=== PATIENT | female | born 1960 | race Caucasian/White ===

== ENCOUNTER 2023-02-24 09:11 | Day surgery (SDC) | payer MEDICAID, SELFPAY ==
[~2023-02-24] VITALS: Ht 162.6 cm; Wt 63.5 kg
[~2023-02-24 09:11] MED LIST: ASPI325T57 PO; FLUC200T4; FOLI400T5 PO; IRON15CH PO; MUCI600T31 PO; VITA200028 PO; VITA500C24 PO; VITMTA PO
[2023-02-24] MEDS ORDERED: LR 1,000 ML IV SCH ×2 (09:55→12:20)
[2023-02-24] MEDS ORDERED: fentaNYL 100 MCG/2 ML INJECTION As Ordered ONE (10:54)
[2023-02-24] MEDS ORDERED: propofoL 200 MG/20 ML VIAL As Ordered ONE (10:54)
[2023-02-24] MEDS ORDERED: LIDOCAINE 2% 100MG/5ML SDV (FOR ANES.) As Ordered ONE (10:54)
[2023-02-24] MEDS ORDERED: ROCURONIUM BROMIDE 50MG/5ML VIAL As Ordered ONE (10:54)
[2023-02-24] MEDS ORDERED: MIDAZOLAM INJ 2MG/2ML VIAL As Ordered ONE (10:54)
[2023-02-24] MEDS ORDERED: ACETAMINOPHEN 1000MG 100ML IV BAG As Ordered ONE (10:55)
[2023-02-24] MEDS ORDERED: ONDANSETRON 4MG 2ML VIAL As Ordered ONE (10:55)
[2023-02-24] MEDS ORDERED: dexmedeTOMIDine (4MCG/ML)200MCG/50ML BTL (PRECEDEX) As Ordered ONE (11:44)
[2023-02-24] MEDS: LIDOCAINE W/EPINEPHRINE 1% 20ML VIAL As Ordered ONE (11:54)
[2023-02-24] MEDS ORDERED: SUGAMMADEX SODIUM 500 MG/5 ML VIAL (BRIDION) As Ordered ONE (12:02)
[2023-02-24] MEDS ORDERED: HYDROMORPHONE HCL 0.5 MG/ 0.5 ML SYRINGE IV PRN (12:20)
[2023-02-24] MEDS ORDERED: fentaNYL 100 MCG/2 ML INJECTION IV PRN (12:20)
[2023-02-24] MEDS ORDERED: oxyCODONE 5MG TAB PO PRN (12:20)
[2023-02-24] MEDS ORDERED: ONDANSETRON 4MG 2ML VIAL IV PRN (12:20)
[2023-02-24 13:35] VITALS: BP 164/94; TEMP 98.4; O2SAT 94
[2023-03-28] MEDS ORDERED: PERCOCET PO (11:23)
[2023-03-28] MEDS ORDERED: DEXA4TA PO (17:23)
[2023-04-05] MEDS ORDERED: OXYC10TA3 PO (08:34)
[2023-04-18] MEDS ORDERED: ONDA8TAB8 PO (15:17)
[2023-04-18] MEDS ORDERED: PROC10TA5 PO (15:17)
== END 2023-02-24 13:37 | disposition home or self-care (01) ==
LOC: M SDC 09:11
PROVIDERS: ATTEND Otolaryngology
DX: C01 Malignant neoplasm of base of tongue (principal); C77.0 Secondary and unspecified malignant neoplasm of lymph nodes of head, face and neck; K21.9 Gastro-esophageal reflux disease without esophagitis; K76.9 Liver disease, unspecified; Z79.82 Long term (current) use of aspirin; Z79.899 Other long term (current) drug therapy; F17.218 Nicotine dependence, cigarettes, with other nicotine-induced disorders
CPT/HCPCS: 31536; 88305; J1100; J2250; J2405; J3010

== ENCOUNTER → 2023-03-28 | Outpatient (CLI) | payer SELFPAY ==
[~2023-03-28] MED LIST changes: +DEXA4TA PO; +PERCOCET PO
== END ==
LOC: M ONCR 10:00
PROVIDERS: ATTEND General Practice
DX: C01 Malignant neoplasm of base of tongue (principal); G89.3 Neoplasm related pain (acute) (chronic); F17.210 Nicotine dependence, cigarettes, uncomplicated; Z71.2 Person consulting for explanation of examination or test findings; Z79.82 Long term (current) use of aspirin
CPT/HCPCS: 31575; G0463

== ENCOUNTER → 2023-03-28 | Outpatient (CLI) | payer SELFPAY | LOC: M PLARAD 12:59 | PROVIDERS: ATTEND Otolaryngology | DX: R22.1 Localized swelling, mass and lump, neck (principal) | CPT/HCPCS: 78815; A9552 ==

== ENCOUNTER → 2023-04-04 | Outpatient (CLI) | payer SELFPAY ==
[~2023-04-04] MED LIST changes: +OXYC10TA3 PO
== END ==
LOC: M IRPRO 12:53
PROVIDERS: ATTEND Internal Medicine Medical Oncology
DX: C01 Malignant neoplasm of base of tongue (principal)

== ENCOUNTER → 2023-04-22 | Outpatient (CLI) | payer MEDICAID ==
[~2023-04-22] VITALS: Ht 162.6 cm; Wt 54.4 kg
[~2023-04-22] MED LIST changes: +LIDOCAINE 1% MDV 20ML VIAL As Ordered ONE; +LIDOCAINE W/EPINEPHRINE 1% 20ML VIAL As Ordered ONE; +MIDAZOLAM INJ 2MG/2ML VIAL As Ordered ONE; +ONDA8TAB8 PO; +PROC10TA5 PO; +ceFAZolin 2 GM/D5W 50 ML IV BAG As Ordered ONE; +fentaNYL 100 MCG/2 ML INJECTION As Ordered ONE
[2023-04-22 09:15] VITALS: TEMP 98.3
[2023-04-22 09:56] LABS: INR 1.16; PROTHROMBIN TIME 14.5 SECONDS (12.5-14.5)
[2023-04-22] MEDS: ceFAZolin SOD 2 GM in IV 1 EA IV ONE (11:12)
[2023-04-22 12:40] VITALS: BP 105/66; O2SAT 96
== END ==
LOC: M IRPRO 08:58
PROVIDERS: ATTEND Internal Medicine Medical Oncology
DX: C01 Malignant neoplasm of base of tongue (principal)
CPT/HCPCS: 36561; 85610; 99152; 99153; J0690; J2250; J3010

== ENCOUNTER → 2023-05-04 | Outpatient (REF) | payer MEDICAID ==
[~2023-05-04] MED LIST changes: +AUGM500T34 PO; -LIDOCAINE 1% MDV 20ML VIAL As Ordered ONE; -LIDOCAINE W/EPINEPHRINE 1% 20ML VIAL As Ordered ONE; -MIDAZOLAM INJ 2MG/2ML VIAL As Ordered ONE; -ceFAZolin 2 GM/D5W 50 ML IV BAG As Ordered ONE; -fentaNYL 100 MCG/2 ML INJECTION As Ordered ONE
== END ==
LOC: M LAB REF 17:05
PROVIDERS: ATTEND Otolaryngology
DX: C76.0 Malignant neoplasm of head, face and neck (principal)

== ENCOUNTER → 2023-05-31 | Outpatient (CLI) | payer OTHER, MEDICAID ==
[~2023-05-31] MED LIST changes: +MAGN400C PO; +POTA99CA2 PO
== END ==
LOC: M ONCR 09:55
PROVIDERS: ATTEND General Practice
DX: C01 Malignant neoplasm of base of tongue (principal); R20.0 Anesthesia of skin; Z79.899 Other long term (current) drug therapy; Z87.891 Personal history of nicotine dependence; Z92.21 Personal history of antineoplastic chemotherapy
CPT/HCPCS: 31575; G0463

== ENCOUNTER → 2023-07-05 | Outpatient (RCR) | payer OTHER ==
[~2023-07-05] MED LIST changes: +B-122500 PO; +FLUC100T3 PO; +GABA-1171 PO; +MAGN400T2 PO; +MIRT1TAB PO; +TRIA25CR TOP
== END ==
LOC: M ONCR 06-08 13:33
PROVIDERS: ATTEND General Practice
DX: Z51.0 Encounter for antineoplastic radiation therapy (principal); C01 Malignant neoplasm of base of tongue

== ENCOUNTER → 2023-07-07 | Outpatient (CLI) | payer OTHER ==
[~2023-07-07] VITALS: Ht 162.6 cm; Wt 52.5 kg
[~2023-07-07] MED LIST changes: -TRIA25CR TOP
[2023-07-07 13:13] VITALS: BP 100/60; O2SAT 100
== END ==
LOC: M PAL 12:51
PROVIDERS: ATTEND Nurse Practitioner Adult Health
DX: G62.9 Polyneuropathy, unspecified (principal); C01 Malignant neoplasm of base of tongue; R06.09 Other forms of dyspnea; B37.0 Candidal stomatitis; R53.83 Other fatigue; R63.0 Anorexia; R53.1 Weakness; Z51.5 Encounter for palliative care; Z92.21 Personal history of antineoplastic chemotherapy; Z92.3 Personal history of irradiation; F17.210 Nicotine dependence, cigarettes, uncomplicated; Z79.51 Long term (current) use of inhaled steroids; Z79.891 Long term (current) use of opiate analgesic; Z79.899 Other long term (current) drug therapy

== ENCOUNTER → 2023-08-05 | Outpatient (RCR) | payer OTHER ==
[~2023-08-05] MED LIST changes: +DEXA2TA PO; +LEVO1TAB39 PO; +MAGICMW SSP; +NYST-38 PO; +TRIA25CR TOP
== END ==
LOC: M ONCR 07-06 13:53
PROVIDERS: ATTEND General Practice
DX: Z51.0 Encounter for antineoplastic radiation therapy (principal); C01 Malignant neoplasm of base of tongue

== ENCOUNTER → 2023-08-10 | Outpatient (CLI) | payer OTHER ==
[~2023-08-10] VITALS: Ht 162.6 cm; Wt 48.1 kg
[~2023-08-10] MED LIST changes: +FENT12DI8 TOP; +ONDA-284 PO; -ONDA8TAB8 PO
[2023-08-10 11:14] VITALS: BP 117/70; O2SAT 95
== END ==
LOC: M PAL 10:40
PROVIDERS: ATTEND Nurse Practitioner Adult Health
DX: G62.9 Polyneuropathy, unspecified (principal); C01 Malignant neoplasm of base of tongue; R06.09 Other forms of dyspnea; K12.30 Oral mucositis (ulcerative), unspecified; R53.83 Other fatigue; R63.0 Anorexia; R53.1 Weakness; Z51.5 Encounter for palliative care; Z66 Do not resuscitate; Z92.21 Personal history of antineoplastic chemotherapy; Z92.3 Personal history of irradiation; F17.210 Nicotine dependence, cigarettes, uncomplicated; Z79.52 Long term (current) use of systemic steroids; Z79.891 Long term (current) use of opiate analgesic; Z79.899 Other long term (current) drug therapy

== ENCOUNTER 2023-08-11 14:29 | Outpatient (RCR) | payer OTHER ==
[2023-08-18] MEDS ORDERED: MAGN400T35 (13:55)
[2023-08-18] MEDS ORDERED: FOLI1TAB11 PO (13:55)
== END 2023-09-04 ==
LOC: M ONCR 14:29
PROVIDERS: ATTEND General Practice
DX: Z51.0 Encounter for antineoplastic radiation therapy (principal); C01 Malignant neoplasm of base of tongue

== ENCOUNTER → 2023-08-18 | Outpatient (CLI) | payer OTHER ==
[~2023-08-18] MED LIST changes: +FOLI1TAB11 PO; +MAGN400T35
== END ==
LOC: M ONCR 13:38
PROVIDERS: ATTEND General Practice
DX: C01 Malignant neoplasm of base of tongue (principal); L59.8 Other specified disorders of the skin and subcutaneous tissue related to radiation; Z71.2 Person consulting for explanation of examination or test findings; Z79.899 Other long term (current) drug therapy; W88.8XXA Exposure to other ionizing radiation, initial encounter; Z92.3 Personal history of irradiation

== ENCOUNTER → 2023-09-22 | Outpatient (CLI) | payer OTHER ==
[~2023-09-22] VITALS: Ht 162.6 cm; Wt 47.7 kg
[~2023-09-22] MED LIST changes: +ECHI500C PO; +GABA-282 PO; +GALZ50CA PO; +IRON65TA2 PO; +L-LY500T6 PO; +LIDO15SO8 PO; +NEUR100C PO; +NOXI1TAB PO; +NYST-38 SS
[2023-09-22 13:03] VITALS: BP 128/83; O2SAT 100
== END ==
LOC: M PAL 12:47
PROVIDERS: ATTEND Nurse Practitioner Adult Health
DX: C01 Malignant neoplasm of base of tongue (principal); B37.0 Candidal stomatitis; K12.30 Oral mucositis (ulcerative), unspecified; R53.83 Other fatigue; R63.0 Anorexia; R53.1 Weakness; Z51.5 Encounter for palliative care; Z66 Do not resuscitate; Z92.21 Personal history of antineoplastic chemotherapy; Z92.3 Personal history of irradiation; F17.210 Nicotine dependence, cigarettes, uncomplicated; Z79.891 Long term (current) use of opiate analgesic; Z79.899 Other long term (current) drug therapy

== ENCOUNTER → 2023-09-22 | Outpatient (CLI) | payer OTHER | LOC: M ONCR 15:31 | PROVIDERS: ATTEND General Practice | DX: Z01.89 Encounter for other specified special examinations (principal); R63.0 Anorexia; R07.0 Pain in throat; L59.8 Other specified disorders of the skin and subcutaneous tissue related to radiation ==

== ENCOUNTER → 2023-10-25 | Outpatient (CLI) | payer OTHER | LOC: M PLARAD 13:16 | PROVIDERS: ATTEND General Practice | DX: C01 Malignant neoplasm of base of tongue (principal) | CPT/HCPCS: 78815; A9552 ==

== ENCOUNTER → 2023-10-27 | Outpatient (CLI) | payer OTHER ==
[~2023-10-27] MED LIST changes: +GABA-1172 PO; -GABA-282 PO
== END ==
LOC: M ONCM 15:00 → M PAL 15:00
PROVIDERS: ATTEND Nurse Practitioner Adult Health
DX: C01 Malignant neoplasm of base of tongue (principal); G62.9 Polyneuropathy, unspecified; R63.0 Anorexia; K12.30 Oral mucositis (ulcerative), unspecified; R59.0 Localized enlarged lymph nodes; B37.0 Candidal stomatitis; Z51.5 Encounter for palliative care; Z66 Do not resuscitate; Z79.891 Long term (current) use of opiate analgesic; Z79.899 Other long term (current) drug therapy; Z92.21 Personal history of antineoplastic chemotherapy; Z92.3 Personal history of irradiation

== ENCOUNTER → 2023-10-27 | Outpatient (CLI) | payer OTHER ==
[~2023-10-27] VITALS: Ht 162.6 cm; Wt 49.9 kg
[2023-10-27 14:54] VITALS: BP 124/68; O2SAT 98
== END ==
LOC: M ONCR 13:51
PROVIDERS: ATTEND General Practice
DX: C01 Malignant neoplasm of base of tongue (principal); C77.0 Secondary and unspecified malignant neoplasm of lymph nodes of head, face and neck; F17.210 Nicotine dependence, cigarettes, uncomplicated; Z79.891 Long term (current) use of opiate analgesic; Z79.899 Other long term (current) drug therapy; Z92.21 Personal history of antineoplastic chemotherapy; Z92.3 Personal history of irradiation
CPT/HCPCS: 31575; 99213; G0463

== ENCOUNTER → 2023-11-28 | Outpatient (CLI) | payer OTHER ==
[~2023-11-28] VITALS: Ht 162.6 cm; Wt 48.3 kg
[2023-11-28 14:17] VITALS: BP 137/80; O2SAT 97
== END ==
LOC: M PAL 13:35
PROVIDERS: ATTEND Nurse Practitioner Adult Health
DX: C01 Malignant neoplasm of base of tongue (principal); B37.0 Candidal stomatitis; K12.30 Oral mucositis (ulcerative), unspecified; G62.9 Polyneuropathy, unspecified; R59.0 Localized enlarged lymph nodes; R53.83 Other fatigue; R63.0 Anorexia; R53.1 Weakness; Z51.5 Encounter for palliative care; Z66 Do not resuscitate; Z92.21 Personal history of antineoplastic chemotherapy; Z92.3 Personal history of irradiation; F17.210 Nicotine dependence, cigarettes, uncomplicated; Z79.891 Long term (current) use of opiate analgesic; Z79.899 Other long term (current) drug therapy

== ENCOUNTER → 2024-01-12 | Outpatient (CLI) | payer OTHER ==
[~2024-01-12] VITALS: Ht 162.6 cm; Wt 48.1 kg
[~2024-01-12] MED LIST changes: +FLUC-1; -FLUC200T4
[2024-01-12 14:03] VITALS: BP 142/81; O2SAT 99
== END ==
LOC: M PAL 13:31
PROVIDERS: ATTEND Nurse Practitioner Adult Health
DX: C01 Malignant neoplasm of base of tongue (principal); B37.0 Candidal stomatitis; K12.30 Oral mucositis (ulcerative), unspecified; G62.9 Polyneuropathy, unspecified; R53.83 Other fatigue; R63.0 Anorexia; R53.1 Weakness; Z51.5 Encounter for palliative care; Z66 Do not resuscitate; Z92.21 Personal history of antineoplastic chemotherapy; Z92.3 Personal history of irradiation; F17.210 Nicotine dependence, cigarettes, uncomplicated; Z79.891 Long term (current) use of opiate analgesic; Z79.899 Other long term (current) drug therapy; Z98.890 Other specified postprocedural states

== ENCOUNTER → 2024-01-27 | Outpatient (CLI) | payer OTHER ==
[2024-01-27 15:17] LABS: FREE T4 1.07 NG/DL (0.89-1.76)
[2024-01-27 15:18] LABS: THYROID STIMULATING HORMONE 2.304 uIU/ML (0.55-4.78)
== END ==
LOC: M ONCR 14:05
PROVIDERS: ATTEND General Practice
DX: C01 Malignant neoplasm of base of tongue (principal); I89.0 Lymphedema, not elsewhere classified; F17.210 Nicotine dependence, cigarettes, uncomplicated; Z92.21 Personal history of antineoplastic chemotherapy; Z92.3 Personal history of irradiation; Z98.890 Other specified postprocedural states
CPT/HCPCS: 31575; 36415; 84439; 84443; 84481; G0463

== ENCOUNTER 2024-02-24 09:42 | Outpatient (RCR) | payer OTHER ==
[2024-03-08] MEDS ORDERED: OXYC10TA3 PO (13:33)
== END 2024-03-06 ==
LOC: M PT 09:42
PROVIDERS: ATTEND General Practice
DX: I89.0 Lymphedema, not elsewhere classified (principal)

== ENCOUNTER → 2024-03-15 | Outpatient (CLI) | payer OTHER ==
[~2024-03-15] VITALS: Ht 162.6 cm; Wt 46.1 kg
[~2024-03-15] MED LIST changes: +MIRA3350 PO
[2024-03-15 14:45] VITALS: BP 148/68; O2SAT 97
== END ==
LOC: M PAL 14:19
PROVIDERS: ATTEND Family Medicine
DX: Z51.5 Encounter for palliative care (principal); R52 Pain, unspecified; C76.0 Malignant neoplasm of head, face and neck; Z92.21 Personal history of antineoplastic chemotherapy; Z92.3 Personal history of irradiation; Z98.890 Other specified postprocedural states; Z66 Do not resuscitate; Z79.891 Long term (current) use of opiate analgesic; Z79.899 Other long term (current) drug therapy

== ENCOUNTER 2024-03-30 09:20 | Outpatient (RCR) | payer OTHER | END 2024-04-06 | LOC: M PT 09:20 | PROVIDERS: ATTEND General Practice | DX: I89.0 Lymphedema, not elsewhere classified (principal); C01 Malignant neoplasm of base of tongue ==

== ENCOUNTER → 2024-04-24 | Outpatient (CLI) | payer OTHER ==
[~2024-04-24] MED LIST changes: +ISOVUE-370 76% 100ML VIAL As Ordered ONE
== END ==
LOC: M RAD 10:12
PROVIDERS: ATTEND General Practice
DX: C01 Malignant neoplasm of base of tongue (principal); K13.79 Other lesions of oral mucosa; R91.1 Solitary pulmonary nodule
CPT/HCPCS: 70491; 71260; Q9967

== ENCOUNTER → 2024-05-01 | Outpatient (CLI) | payer OTHER ==
[~2024-05-01] MED LIST changes: -ISOVUE-370 76% 100ML VIAL As Ordered ONE
== END ==
LOC: M ONCR 13:58
PROVIDERS: ATTEND General Practice
DX: C01 Malignant neoplasm of base of tongue (principal); K08.9 Disorder of teeth and supporting structures, unspecified; R59.0 Localized enlarged lymph nodes; Z92.21 Personal history of antineoplastic chemotherapy; Z92.3 Personal history of irradiation; F17.210 Nicotine dependence, cigarettes, uncomplicated; Z79.891 Long term (current) use of opiate analgesic; Z79.899 Other long term (current) drug therapy

== ENCOUNTER → 2024-05-21 | Outpatient (CLI) | payer OTHER | LOC: M PLARAD 14:54 | PROVIDERS: ATTEND General Practice | DX: C01 Malignant neoplasm of base of tongue (principal) | CPT/HCPCS: 78815; A9552 ==

== ENCOUNTER → 2024-05-29 | Outpatient (CLI) | payer OTHER ==
[~2024-05-29] MED LIST changes: +MIRT1TAB15 PO
== END ==
LOC: M ONCR 11:10
PROVIDERS: ATTEND General Practice
DX: C77.0 Secondary and unspecified malignant neoplasm of lymph nodes of head, face and neck (principal); C01 Malignant neoplasm of base of tongue; F17.210 Nicotine dependence, cigarettes, uncomplicated; Z79.899 Other long term (current) drug therapy; Z92.21 Personal history of antineoplastic chemotherapy; Z92.3 Personal history of irradiation; K08.89 Other specified disorders of teeth and supporting structures; R91.8 Other nonspecific abnormal finding of lung field

== ENCOUNTER → 2024-05-29 | Outpatient (CLI) | payer OTHER ==
[~2024-05-29] VITALS: Ht 162.6 cm; Wt 49.7 kg
[2024-05-29 11:37] VITALS: BP 111/69; O2SAT 97
== END ==
LOC: M PAL 11:12
PROVIDERS: ATTEND Physician Assistant
DX: Z51.5 Encounter for palliative care (principal); Z66 Do not resuscitate; C44.42 Squamous cell carcinoma of skin of scalp and neck; Z92.3 Personal history of irradiation; Z92.21 Personal history of antineoplastic chemotherapy; Z79.891 Long term (current) use of opiate analgesic; F41.9 Anxiety disorder, unspecified; Z79.899 Other long term (current) drug therapy

== ENCOUNTER → 2024-06-25 | Outpatient (CLI) | payer OTHER ==
[~2024-06-25] VITALS: Ht 167.6 cm; Wt 46.3 kg
[~2024-06-25] MED LIST changes: +LIDO30CR18 TOP; +ONDA-84 PO; +OXYC1SOL3 PO
[2024-06-25 11:12] VITALS: BP 116/83; O2SAT 96
== END ==
LOC: M PAL 10:51
PROVIDERS: ATTEND Physician Assistant
DX: Z51.5 Encounter for palliative care (principal); C01 Malignant neoplasm of base of tongue; F41.9 Anxiety disorder, unspecified; R52 Pain, unspecified; Z66 Do not resuscitate; Z92.21 Personal history of antineoplastic chemotherapy; Z92.3 Personal history of irradiation; Z98.890 Other specified postprocedural states; Z79.891 Long term (current) use of opiate analgesic; Z79.899 Other long term (current) drug therapy

== ENCOUNTER → 2024-06-25 | Outpatient (CLI) | payer OTHER | LOC: M ONCR 10:52 | PROVIDERS: ATTEND General Practice | DX: C01 Malignant neoplasm of base of tongue (principal); K12.31 Oral mucositis (ulcerative) due to antineoplastic therapy; B37.0 Candidal stomatitis; T45.1X5A Adverse effect of antineoplastic and immunosuppressive drugs, initial encounter; Z92.21 Personal history of antineoplastic chemotherapy ==

== ENCOUNTER → 2024-07-11 | Outpatient (CLI) | payer OTHER ==
[~2024-07-11] VITALS: Ht 162.6 cm; Wt 46.7 kg
[~2024-07-11] MED LIST changes: -GALZ50CA PO; +OXYC10TA12 PO; +SENN8.6T58 PO; -TRIA25CR TOP; +TRIA80CR15 TOP; +ZINC50CA4 PO
[2024-07-11 11:07] VITALS: BP 99/63; O2SAT 97
== END ==
LOC: M PAL 10:43
PROVIDERS: ATTEND Physician Assistant
DX: Z51.5 Encounter for palliative care (principal); Z66 Do not resuscitate; C44.42 Squamous cell carcinoma of skin of scalp and neck; Z92.21 Personal history of antineoplastic chemotherapy; Z92.3 Personal history of irradiation; Z79.891 Long term (current) use of opiate analgesic

== ENCOUNTER → 2024-07-11 | Outpatient (CLI) | payer OTHER | LOC: M ONCR 10:44 | PROVIDERS: ATTEND General Practice | DX: Z01.89 Encounter for other specified special examinations (principal) ==

== ENCOUNTER → 2024-11-06 | Outpatient (CLI) | payer OTHER ==
[~2024-11-06] MED LIST changes: +FLUC150T9 PO; +ISOVUE-370 76% 100 ML VIAL As Ordered ONE; +ITRA10SO PO; -L-LY500T6 PO; +LEVO75CA3 PO; +LEVO75TA4 PO; +OXYC5SOL11 PO; +RA L500T PO; +SPOR1CAP PO; +SYNT50TA PO
== END ==
LOC: M RAD 13:02
PROVIDERS: ATTEND Internal Medicine Medical Oncology
DX: C01 Malignant neoplasm of base of tongue (principal); R91.8 Other nonspecific abnormal finding of lung field
CPT/HCPCS: 70491; 71260; 74177; Q9967

== ENCOUNTER → 2024-12-04 | Outpatient (CLI) | payer OTHER ==
[~2024-12-04] MED LIST changes: -ISOVUE-370 76% 100 ML VIAL As Ordered ONE
== END ==
LOC: M PLARAD 10:42
PROVIDERS: ATTEND General Practice
DX: C01 Malignant neoplasm of base of tongue (principal)
CPT/HCPCS: 78815; A9552

== ENCOUNTER → 2024-12-18 | Outpatient (CLI) | payer OTHER ==
[~2024-12-18] MED LIST changes: +CEPH500C PO; +LEVO88CA2 PO
== END ==
LOC: M ONCR 09:02
PROVIDERS: ATTEND General Practice
DX: C01 Malignant neoplasm of base of tongue (principal); C78.01 Secondary malignant neoplasm of right lung; F17.210 Nicotine dependence, cigarettes, uncomplicated; Z92.21 Personal history of antineoplastic chemotherapy; Z92.3 Personal history of irradiation; Z79.891 Long term (current) use of opiate analgesic; Z79.899 Other long term (current) drug therapy

== ENCOUNTER → 2025-01-28 | Outpatient (CLI) | payer OTHER ==
[~2025-01-28] VITALS: Ht 162.6 cm; Wt 56.2 kg
[~2025-01-28] MED LIST changes: +LEVO100T5 PO
[2025-01-28 11:10] VITALS: BP 143/79; O2SAT 97
== END ==
LOC: M PAL 11:02
PROVIDERS: ATTEND Physician Assistant
DX: Z51.5 Encounter for palliative care (principal); Z66 Do not resuscitate; C01 Malignant neoplasm of base of tongue; F17.218 Nicotine dependence, cigarettes, with other nicotine-induced disorders; Z92.21 Personal history of antineoplastic chemotherapy; Z92.3 Personal history of irradiation; Z79.620 Long term (current) use of immunosuppressive biologic; Z79.899 Other long term (current) drug therapy; Z79.891 Long term (current) use of opiate analgesic

== ENCOUNTER → 2025-01-28 | Outpatient (CLI) | payer OTHER | LOC: M ONCR 11:25 | PROVIDERS: ATTEND General Practice | DX: C01 Malignant neoplasm of base of tongue (principal); F17.218 Nicotine dependence, cigarettes, with other nicotine-induced disorders; Z92.21 Personal history of antineoplastic chemotherapy; Z92.3 Personal history of irradiation; Z79.620 Long term (current) use of immunosuppressive biologic; Z79.899 Other long term (current) drug therapy ==